=== PATIENT | female | born 1955 | race Caucasian/White ===

== ENCOUNTER 2020-07-14 09:36 | Day surgery (SDC) | payer MEDICARE ==
[~2020-07-14] VITALS: Ht 157.5 cm; Wt 72.5 kg
[~2020-07-14 09:36] MED LIST: ACET-1600 PO; ASCO100018 PO; CALC-62 PO; CALC400T6 PO; CHOL10003 PO; LEVO50TA PO; PHEN95TA25 PO; SODI1TAB11 PO
[2020-07-14] MEDS ORDERED: CHLORHEXIDINE 15 ML UDC MM ONE (10:30)
[2020-07-14] MEDS ORDERED: LIDOCAINE-MPF 1%, 2ML INFIL ONE (10:30)
[2020-07-14] MEDS ORDERED: LACTATED RINGERS 1,000 ML IV SCH (10:30)
[2020-07-14] MEDS ORDERED: LIDOCAINE/PF 1%, 30ML ONE (10:50)
[2020-07-14] MEDS ORDERED: BUPIVACAINE/PF 0.5% ONE ×2 (10:50→12:05)
[2020-07-14] MEDS ORDERED: EPINEPHRINE 1 MG/ML, 1ML ONE (10:50)
[2020-07-14] MEDS ORDERED: FENTANYL PF 100 MCG/2ML ONE ×2 (11:14→12:42)
[2020-07-14] MEDS ORDERED: MIDAZOLAM 1 MG/ML, 2ML ONE (11:14)
[2020-07-14] MEDS ORDERED: PROPOFOL 10 MG/ML, 20ML ONE (11:54)
[2020-07-14] MEDS ORDERED: KETOROLAC 30 MG/1 ML ONE (11:54)
[2020-07-14] MEDS ORDERED: ONDANSETRON 2MG/ML, 2ML ONE (11:54)
[2020-07-14] MEDS ORDERED: DEXAMETHASONE 4 MG/ML, 1ML ONE (11:54)
[2020-07-14] MEDS ORDERED: CEFAZOLIN 1,000 MG ONE (11:54)
[2020-07-14] MEDS ORDERED: DIAZEPAM 5 MG/ML, 2ML IVPush PRN (12:00)
[2020-07-14] MEDS ORDERED: HYDROmorphone 1 MG/ML, 1ML INJ IVPush PRN (12:00)
[2020-07-14] MEDS ORDERED: PROMETHAZINE 25 MG/ML, 1ML IVPush PRN (12:00)
[2020-07-14] MEDS ORDERED: ACETAMINOPHEN 325 MG TABLET PO PRN (12:00)
[2020-07-14] MEDS ORDERED: MEPERIDINE/PF 25MG/0.5ML IVPush PRN (12:00)
[2020-07-14] MEDS ORDERED: OXYcodone 5 MG/5 ML ORAL.SOL UDC PO PRN (12:00)
[2020-07-14] MEDS ORDERED: FENTANYL PF 100 MCG/2ML IV PRN (12:00)
[2020-07-14] MEDS ORDERED: LIDOCAINE-MPF 2% ,5ML ONE (12:05)
[2020-07-14] MEDS ORDERED: EPHEDRINE 50 MG/ML, 1ML ONE (12:09)
== END 2020-07-14 14:40 | disposition home or self-care (01) ==
LOC: OUT 09:36
PROVIDERS: ATTEND Orthopaedic Surgery Foot and Ankle Surgery
DX: S82.841A Displaced bimalleolar fracture of right lower leg, initial encounter for closed fracture (principal); I10 Essential (primary) hypertension; K21.9 Gastro-esophageal reflux disease without esophagitis; X58.XXXA Exposure to other specified factors, initial encounter; Y93.89 Activity, other specified; Y92.89 Other specified places as the place of occurrence of the external cause; Y99.8 Other external cause status; Z20.828 Contact with and (suspected) exposure to other viral communicable diseases; Z79.899 Other long term (current) drug therapy; Z72.89 Other problems related to lifestyle; Z98.890 Other specified postprocedural states
CPT/HCPCS: 27822; 64447; 73610; 76000; 87635; 93005; C1713; J0690; J1100; J1885; J2250; J2405; J2704; J3010; J7120; J0171

== ENCOUNTER → 2021-01-04 | Outpatient (CLI) | payer MEDICARE | END | disposition home or self-care (01) | LOC: CFH 13:58 | DX: N63.21 Unspecified lump in the left breast, upper outer quadrant (principal); N60.02 Solitary cyst of left breast; R92.8 Other abnormal and inconclusive findings on diagnostic imaging of breast | CPT/HCPCS: 76642; 77065 ==